=== PATIENT | female | born 1995 ===

== ENCOUNTER 2017-11-20 00:48 | Emergency (ER) | payer BC ==
[~2017-11-20] VITALS: Ht 165.1 cm; Wt 55.3 kg
[2017-11-20 00:58] VITALS: Ht 165.1 cm; Wt 55.3 kg
[2017-11-20 02:51] LABS: ALKALINE PHOSPHATASE 36 U/L (46-116); AST/SGOT 12 U/L (15-37); CREATININE SERUM 0.5 mg/dL (0.6-1.0); GFR1 > 60 mL/min; GLUCOSE SERUM 82 mg/dL (74-106); TOTAL PROTEIN, SERUM 6.8 g/dL (6.4-8.2)
[2017-11-20 03:00] LABS: CHLORIDE SERUM 103 mmol/L (98-107); POTASSIUM SERUM 3.8 mmol/L (3.5-5.1); SODIUM SERUM 133 mmol/L (136-145)
[2017-11-20 03:06] LABS: CALCIUM 8.5 mg/dL (8.5-10.1); CARBON DIOXIDE 22.1 mmol/L (21-32)
[2017-11-20 03:11] LABS: UA SPECIFIC GRAVITY <=1.005 (1.005-1.035); microscopic required? YES; urine erythrocyte NEGATIVE (NEGATIVE)
[2017-11-20 03:11] LABS: ALBUMIN 3.4 g/dL (3.4-5.0); ALT/SGPT 17 U/L (14-59); BILIRUBIN TOTAL 0.3 mg/dL (0.20-1.00)
[2017-11-20 03:47] LABS: BASOPHIL % 0.1 % (0-2); PLATELET COUNT 197 x10^3mcL (130-400); RED CELL DISTRIBUTION WIDTH 12.5 % (11.5-14.5)
[2017-11-20 05:39] VITALS: BP 103/70
== END 2017-11-20 05:39 | disposition home or self-care (01) ==
LOC: ED 00:48
PROVIDERS: Emergency Medicine
DX: O26.891 Other specified pregnancy related conditions, first trimester (principal); O21.9 Vomiting of pregnancy, unspecified; R82.71 Bacteriuria; J02.9 Acute pharyngitis, unspecified; R19.7 Diarrhea, unspecified; R10.13 Epigastric pain; Z3A.01 Less than 8 weeks gestation of pregnancy
CPT/HCPCS: J2765; J7030